=== PATIENT | male | born 1980 | race Caucasian/White ===

== ENCOUNTER 2016-10-20 15:41 | Emergency (ER) | payer MEDICARE, OTHER ==
[~2016-10-20] VITALS: Ht 170.2 cm; Wt 77.1 kg
[2016-10-20 15:51] VITALS: BP 123/81
[2016-10-20] MEDS ORDERED: AMOX500C PO (16:13)
[2016-10-20] MEDS ORDERED: OFLO5DRO7 RIGHT EAR (16:13)
--- NOTE | 2016-10-20 16:13 | PHYS DOC ---
Past Medical History Past Medical History: Other Additional Past Medical Histor: MR Past Surgical History: No Surgical History Alcohol Use: None Drug Use: None Adult General Chief Complaint Chief Complaint: EARACHE/EAR PAIN HPI HPI Patient is a 36 year old male presents to the emergency Department stating he' s been having right ear pain for the last 4-5 days. He states that he cleaned his ear is out and was getting large amount of cerumen. He states that he noted that they did give some blood as well. Patient denies any fever, chills or any nausea vomiting he does state that he has decreased hearing in the right ear. Review of Systems Review of Systems Constitutional: Denies fever or chills [] Eyes: Denies change in visual acuity, redness, or eye pain [] HENT: Denies nasal congestion or sore throat. Right ear pain Respiratory: Denies cough or shortness of breath [] Cardiovascular: No additional information not addressed in HPI [] GI: Denies abdominal pain, nausea, vomiting, bloody stools or diarrhea [] : Denies dysuria or hematuria [] Musculoskeletal: Denies back pain or joint pain [] Integument: Denies rash or skin lesions [] Neurologic: Denies headache, focal weakness or sensory changes [] Endocrine: Denies polyuria or polydipsia [] Allergies Allergies Allergies Coded Allergies Type Severity Reaction Last Updated Verified No Known Drug Allergies 10/20/16 No Physical Exam Physical Exam Constitutional: Well developed, well nourished, no acute distress, non-toxic appearance. [] HENT: Normocephalic, atraumatic, bilateral external ears normal, oropharynx moist, no oral exudates, nose normal. Left ear normal, right ear with redness in the canal and TM. Eyes: PERRLA, EOMI, conjunctiva normal, no discharge. [] Neck: Normal range of motion, no tenderness, supple, no stridor. [] Cardiovascular:Heart rate regular rhythm, no murmur [] Lungs & Thorax: Bilateral breath sounds clear to auscultation [] Skin: Warm, dry, no erythema, no rash. [] Back: No tenderness Extremities: No tenderness, no cyanosis, no clubbing, ROM intact, no edema. [] Neurologic: Alert and oriented X 3, normal motor function, normal sensory function, no focal deficits noted. [] Psychologic: Affect normal, judgement normal, mood normal. [] Current Patient Data Vital Signs Vital Signs Date Time Temp Pulse Resp B/P (MAP) Pulse Ox O2 Delivery O2 Flow Rate FiO2 10/20/16 15:51 97.8 79 20 93 Room Air 97.8 EKG EKG [] Radiology/Procedures Radiology/Procedures [] Course & Med Decision Making Course & Med Decision Making Pertinent Labs and Imaging studies reviewed. (See chart for details) Patient with right ear cleaned with curette with thick cerumen noted. Patient will be placed on otic drops and PO antibiotics. Patient will be discharged home in stable condition. Signs and symptoms to return to the emergency department has been provided. Followup recommendations provided. All questions and concerns provided to primary care nurse practitioner at bedside [] Dragon Disclaimer Dragon Disclaimer This electronic medical record was generated, in whole or in part, using a voice recognition dictation system. Departure Departure Impression: Primary Impression: Right otitis media Additional Impression: Right otitis externa Disposition: HOME, SELF-CARE Condition: STABLE Referrals: Rocky SANCHEZ MD (PCP) Patient Instructions: Otitis Externa, [id number], Otitis Media, Adult, Easy- to-Read Additional Instructions: Your being treated for a right inner infection as well as a right outer ear infection. Medication as prescribed. Tylenol or ibuprofen for pain and discomfort. Drink plenty of fluids. Follow-up to primary care physician in one week. Return back to emergency department for signs and symptoms of become worse. Scripts Ofloxacin (OFLOXACIN) 5 Ml Drops 5 DROP RIGHT EAR BID, #[address] in the right ear for the next 7 days Prov: SUKUMAR YANG SENIOR PENSIONS ADMINISTRATOR 10/20/16 Amoxicillin (AMOXICILLIN) 500 Mg Capsule 1 CAP PO BID, #20 CAP Prov: SUKUMAR YANG APRN 10/20/16 Problem Qualifiers Primary Impression: Right otitis media Chronicity: acute Recurrence: not specified as recurrent Additional Impression: Right otitis externa Otitis externa type: unspecified type Chronicity: acute Qualified Codes: H60.501 - Unspecified acute noninfective otitis externa, right ear SUKUMAR YANG SENIOR PENSIONS ADMINISTRATOR Oct 20, 2016 16:13
== END 2016-10-20 16:29 | disposition home or self-care (01) ==
LOC: ER 15:41
DX: H66.91 Otitis media, unspecified, right ear (principal); H60.91 Unspecified otitis externa, right ear
CPT/HCPCS: 99283